=== PATIENT | male | born 1955 | race African-American/Black ===

== ENCOUNTER 2016-11-19 20:08 | Emergency (ER) | payer OTHER ==
[~2016-11-19] VITALS: Ht 167.6 cm; Wt 115.7 kg
[~2016-11-19 20:08] MED LIST: LISINOPRIL HCTZ1 TAB PO; PREDNISONE 20MG20 MG PO; PROAIR HFA0.09 MG/Ac INH; TESSALON PERLE100 MG PO
--- NOTE | 2016-11-19 20:36 | ED UPPER/LOWER EXTREMITY COMPL ---
History of Present Illness General Chief Complaint: General Adult Stated Complaint: "RT ARM PAIN RADITES TO SHOULDER/NECK FINGERS" Source: patient, old records Exam Limitations: no limitations Vital Signs & Intake/Output Vital Signs & Intake/Output Vital Signs Date Time Temp Pulse Resp B/P Pulse O2 O2 Flow FiO2 Ox Delivery Rate 11/19 2129 97.6 79 18 140/74 98 11/19 2026 98.2 94 18 144/92 96 Room Air Allergies Coded Allergies: NO KNOWN ALLERGIES (04/06/14) Reconcile Medications Albuterol Sulfate (Proair Hfa) 0.09 MG/Actuation JENSEN 2 PUF INH Q4H PRN SHORTNESS OF BREATH Benzonatate (Tessalon Perle) 100 MG CAPSULE 1 CAP PO TID PRN COUGH LISINOPRIL/HYDROCHLOROTHIAZIDE (Lisinopril-Hctz 20-25 MG Tab) 20 MG-25 MG TABLET 1 TAB PO DAILY BP (Reported) Oxycodone HCl/Acetaminophen (Percocet 5-325 MG Tablet) 5 MG-325 MG TABLET 1 TAB PO BID PRN BREAKTHROUGH PAIN Prednisone 20 MG TABLET 1 TAB PO DAILY BRONCHITIS DAY 1,2: 3 TABS PO QD DAY 3,4: 2 TABS PO QD DAY 5,6: 1 TAB PO QD DAY 7,8: 0.5 TAB PO QD Triage Note: REPORTS INABILITY TO LIFT RIGTH ARM WITH + PAIN UPON ATTEMPTING TO DO SO. DENIED INJURIES. NO CHEST PAIN, NAUSEA RO VOMITING. Triage Nurses Notes Reviewed? yes Onset: Abrupt Duration: day(s): (2), constant Timing: recent history Severity: moderate Severity Numbers: 6 Pain/Injury Location: Right: Shoulder. Method of Injury: unknown Modifying Factors: Improves With: pain medication, rest. Worsens With: movement. Associated Symptoms: numbness HPI: 61-year-old male presents emergency room after he woke up yesterday morning with right shoulder pain that is radiating up into his neck and down his arm associated with tingling in his hand. The patient states he took ibuprofen which helped slightly however the pain returned. He states he had difficulty with range of motion of the shoulder since secondary to pain. There's been no recent injury trauma or heavy lifting. He denies any back pain chest pain shortness of breath. He denies any left arm or lower extremity pain or injury. Last dose of ibuprofen was earlier today. He denies headache, nausea or vomiting. No modifying factors or associated symptoms otherwise. He denies history of similar episodes in the past (RUBEN CALDERON) Past History Travel History Traveled to [place] past 21 day No Medical History Any Pertinent Medical History? see below for history Cardiovascular: CHF, HTN, HIGH CHOLESTEROL CHF. Surgical History Surgical History: non-contributory Psychosocial History What is your primary language Nepalese Tobacco Use: Never used Family History Hx Contributory? No (RUBEN CALDERON) Review of Systems Review of Systems Constitutional: Reports: see HPI. All Other Systems: Reviewed and Negative Comments Review of systems: See HPI, All other systems negative. Constitutional, no chills no fever, no malaise HEENT: No visual changes no sore throat no congestion Cardiovascular: No chest pain , no palpitation Skin, no rashes, no change in skin Respiratory: No dyspnea no cough no sputum GI: No nausea no vomiting, no diarrhea : No dysuria No hematuria, no frequency Muscle skeletal: No joint pain, no back pain, no neck pain, Neurologic: No numbness no headache Psych: No stress Heme/endocrine: No bruising no bleeding Immunology: No lymphadenopathy (RUBEN CALDERON) Physical Exam Physical Exam General Appearance: well developed/nourished, alert, awake Comments: Well-developed well-nourished person in no acute distress HEENT: Normal EENT exam; PERRL, EOMI, HEAD is atraumatic. moist mucous membranes. Neck: Supple, normal range of motion , nontender Back: Nontender, Full range of motion Cardiovascular: Regular rate and rhythms no murmurs rubs or gallops Respiratory: Chest nontender.There were no bony deformities, no asymmetry. No respiratory distress. Patient speaking in full complete sentences. Breath sounds clear to auscultation bilaterally: NO W/R/R Abdomen: Soft, nontender nondistended, no appreciable organomegaly. Normal bowel sounds. No rebound/guarding Shoulder: Atraumatic/Stable. Limited range of motion secondary to pain tenderness to palpation over the anterior right shoulder Elbow: Atraumatic/stable. FROM. No laxity Upper arm/Forearm: Atraumatic. Nontender. No edema, 5 out of 5 tooling specialist strength noted to bilateral upper extremities Hand/Wrist: Atraumatic/stable. Skin intact. FROM Pulses: Normal/equal radial pulses bilaterally. Brisk cap refill LOWER Extremity: No edema, full range of motion of extremities, normal and equal pulses bilaterally, 5 out of 5 strength noted to bilatera lower extremities Neuro: Alert oriented x3, motor sensory normal. There were no obvious focal neurologic abnormalities. Skin: No appreciable rash on exposed skin, skin is warm and dry. Psych: Mood and affect is normal, memory and judgment is normal. (RUBEN CALDERON) Progress Differential Diagnosis: contusion, DVT, fracture, tendon injury, radiculopathy, muscle strain thoracic outlet syndrome, ami Plan of Care: Orders Procedure Date/time Status Durable Medical Equipment 11/19 2119 Active TROPONIN LEVEL 11/19 2018 Complete COMPREHENSIVE METABOLIC PANEL 11/19 2018 Complete CBC WITHOUT DIFFERENTIAL 11/19 2018 Complete EKG 11/19 2010 Active Laboratory Tests 11/19/162027: Anion Gap 11, Estimated GFR > 60, BUN/Creatinine Ratio 15.5, Glucose 171 H, Calcium 10.1, Total Bilirubin 0.5, AST 25, ALT 35, Alkaline Phosphatase 94, Troponin I < 0.01, Total Protein 7.1, Albumin 4.0, Globulin 3.1, Albumin/ Globulin Ratio 1.3, CBC w Diff NO MAN DIFF REQ, RBC 4.77, MCV 89.6, MCH 29.8, RDW 14.9 H, MPV 7.4, Gran % 57.1, Lymphocytes % 24.8, Monocytes % 14.5 H, Eosinophils % 2.2, Basophils % 1.4, Absolute Granulocytes 4.8, Absolute Lymphocytes 2.1, Absolute Monocytes 1.2 H, Absolute Eosinophils 0.2, Absolute Basophils 0.1, PUBS MCHC 33.3 Labs ordered old records reviewed patient medicated Percocet 1 x-rays ordered. Case discussed Dr. Lopez On repeat evaluation patient reports symptoms have improved with medication discussed at length all of his lab work and x-ray findings need for close follow -up with his primary care physician this week. Given symptoms began upon waking they're reproducible with range of motion of the shoulder does not believe your primary repeat blood work or troponin symptoms are consistent most skeletal skeletal. Feels comfortable plan I told all his questions cleared for discharge (RUBEN CALDERON) Diagnostic Imaging: Viewed by Me: Radiology Read. Discussed w/RAD: Radiology Read. Radiology Impression: PATIENT: ÁNGEL SHEFFIELD PRESENT AGE: 61 PATIENT ACCOUNT NO: [id number] : 55 LOCATION: [facility] ORDERING PHYSICIAN: RUBEN MITCHELL SERVICE DATE: 11/19/16 EXAM TYPE: RAD - XRY- SHOULDER COMPLETE-RIGHT EXAMINATION: XR SHOULDER, RIGHT CLINICAL INFORMATION: Pain. COMPARISON: None. TECHNIQUE: 3 views. FINDINGS: There are no fractures or dislocations. No joint effusion is identified. No bone, joint or soft tissue abnormality is demonstrated. IMPRESSION: Normal shoulder. DICTATED BY: CRYSTAL HAQUE MD DATE/TIME DICTATED:11/19/162107 [employer] INSTALLER:TONIE DATE/TIME TRANSCRIBED:11/19/162107 CONFIDENTIAL, DO NOT COPY WITHOUT APPROPRIATE AUTHORIZATION. <Electronically signed in Other Vendor System> SIGNED BY: CRYSTAL HAQUE MD 11/19/162111 Initial ED EKG: NORMAL SINUS AT 90, NONSPECIFIC st SEGMENT CHANGES UNCHANGED FROM PREVIOUS Prior EKG: unchanged (03/2014) (SIMONA MITCHELL,RUBEN) Departure Departure Disposition: HOME OR SELF CARE Condition: Stable Clinical Impression Primary Impression: Cervical radiculopathy Referrals: ABIMBOLA ALVAREZ APRN (PCP/Family) Additional Instructions: Follow-up with your primary care physician this week. Rest ice shoulder sling as discussed for comfort. Percocet for breakthrough pain. Use caution as this is a narcotic no driving or drinking alcohol while taking. Continue taking ibuprofen as he has previously been doing Departure Forms: Customer Survey General Discharge Information Prescriptions: Current Visit Scripts Oxycodone HCl/Acetaminophen (Percocet 5-325 MG Tablet) 1 TAB PO BID PRN BREAKTHROUGH PAIN #8 TAB (RUBEN CALDERON) PA/MANAGER TRANSFER Co-Sign Statement Statement: ED Attending supervision documentation- [] I saw and evaluated the patient. I have also reviewed all the pertinent lab results and diagnostic results. I agree with the findings and the plan of care as documented in the PA's/MANAGER TRANSFER's documentation. [x] I have reviewed the ED Record and agree with the PA's/MANAGER TRANSFER's documentation. [] Additions or exceptions (if any) to the PAs/MANAGER TRANSFER's note and plan are summarized below: [] (FRANKY ARIAS,MARIALUISA Montes)
[2016-11-19 20:39] LABS: ABSOLUTE BASOPHIL COUNT 0.1 /CUMM (0.0-0.2); ABSOLUTE EOSINOPHIL COUNT 0.2 /CUMM (0.0-0.7); ABSOLUTE GRANULOCYTE CT 4.8 /CUMM (1.4-6.5); ABSOLUTE LYMPH COUNT 2.1 /CUMM (1.2-3.4); ABSOLUTE MONOCYTE COUNT 1.2 /CUMM (0.10-0.60); BASOPHIL % 1.4 % (0.0-2.0); EOSINOPHIL % 2.2 % (0-5); GRANULOCYTE % 57.1 % (42.2-75.2); HEMATOCRIT 42.8 % (42-52); MEAN CORPUSCULAR HGB 29.8 PG (27.0-31.0); MEAN CORPUSCULAR HGB CONC 33.3 G/DL (33.0-37.0); MEAN CORPUSCULAR VOLUME 89.6 FL (80.0-94.0); MEAN PLATELET VOLUME 7.4 FL (7.4-10.4); PLATELET COUNT 245 /CUMM (130-400); RBC DISTRIBUTION WIDTH 14.9 % (11.5-14.5); RED BLOOD CELL CT 4.77 /CUMM (4.70-6.10); WHITE BLOOD CELL COUNT 8.4 /CUMM (4.8-10.8)
--- NOTE | 2016-11-19 21:12 | RADIOLOGY REPORT ---
EXAMINATION: XR SHOULDER, RIGHT CLINICAL INFORMATION: Pain. COMPARISON: None. TECHNIQUE: 3 views. FINDINGS: There are no fractures or dislocations. No joint effusion is identified. No bone, joint or soft tissue abnormality is demonstrated. IMPRESSION: Normal shoulder.
[2016-11-19] MEDS ORDERED: PERCOCET 5-3251 EACH PO (21:14)
[2016-11-19 21:30] VITALS: BP 140/74
== END 2016-11-19 21:31 ==
LOC: ERH 20:08
PROVIDERS: Pediatrics
DX: M54.12 Radiculopathy, cervical region (principal); M25.511 Pain in right shoulder
CPT/HCPCS: 73030-RT; 93005; 93010